=== PATIENT | male | born 1960 | race African-American/Black ===

== ENCOUNTER 2019-01-03 07:08 | Inpatient (IN) | payer MEDICAID ==
[~2019-01-03] VITALS: Ht 172.7 cm; Wt 58.1 kg
[2019-01-03 08:19] LABS: BASOPHILS % 0.9 % (0.0-2.0); EOSINOPHILS % 0.6 % (0.0-5.0); HEMATOCRIT. 38.9 % (42.0-52.0); HEMOGLOBIN. 13.2 g/dL (14.0-18.0); LYMPHOCYTES % 20.6 % (20.0-50.0); MEAN CORPUSCULAR HEMOGLOBIN 30.6 pg (28.0-32.0); MEAN CORPUSCULAR VOLUME 90.3 fL (80.0-94.0); MEAN PLATELET VOLUME 8.7 fl (7.4-10.4); MONOCYTES % 7.5 % (2.0-8.0); NEUTROPHILS % 70.4 % (40.0-76.0); PLATELET 173 x1000/uL (130-400); RED BLOOD CELL COUNT 4.31 mill/uL (4.7-6.1); RED CELL DISTRIBUTION WIDTH 15.3 % (11.6-14.6)
[2019-01-03 08:25] LABS: CHLORIDE 106 mEq/L (98-107)
[2019-01-03 11:55] VITALS: BP 141/61
[2019-01-03] MEDS ORDERED: GUAIFENESIN 200MG/10ML SUGAR FREE UDC PO PRN (12:30)
[2019-01-03] MEDS ORDERED: CLONIDINE 0.1MG TABLET PO PRN (12:30)
[2019-01-03] MEDS ORDERED: MAGNESIUM/ALUMINUM HYDROXIDE/SIMETHICONE 30ML UDC PO PRN (12:30)
[2019-01-03] MEDS ORDERED: DOCUSATE SODIUM 100MG CAPSULE PO PRN (12:30)
[2019-01-03] MEDS ORDERED: HYDROCODONE/ACETAMINOPHEN 5/325MG TABLET PO PRN (12:30)
[2019-01-03] MEDS ORDERED: ACETAMINOPHEN 325MG TABLET PO PRN (12:30)
[2019-01-03] MEDS ORDERED: ONDANSETRON HCL 4MG/2ML INJ IV PRN (12:30)
[2019-01-03] MEDS ORDERED: POTASSIUM CHLORIDE 20MEQ TABLET SR PO SCH (12:30)
[2019-01-03 13:01] VITALS: BP 141/61
[2019-01-03] MEDS: ENOXAPARIN 40MG/0.4ML SYR SUBCUT SCH (13:05)
[2019-01-03 16:08] VITALS: BP 148/65
[2019-01-03] MEDS: SODIUM CHLORIDE 0.45% 1,000 ML IV SCH (16:50)
[2019-01-03 16:51] LABS: CREATINE KINASE MB FRACTION 2.8 ng/mL (0.5-3.6)
[2019-01-03 17:00] LABS: CREATINE KINASE 1217 IU/L (39-308)
[2019-01-03 20:00] VITALS: BP_SYST 154; BP_SYST 159; BP_DIAS 53; BP_DIAS 99
[2019-01-03] MEDS ORDERED: DEXTROSE 50% WATER 50ML SYRINGE IV PRN (20:15)
[2019-01-03] MEDS: BLOOD SUGAR DIAGNOSTIC STRIP TEST SCH (20:31)
[2019-01-03] MEDS: INSULIN LISPRO 100 UNITS/ML SUBCUT SCH (20:31)
[2019-01-04 00:06] VITALS: BP 135/59
[2019-01-04 00:11] LABS: CREATINE KINASE 950 IU/L (39-308)
[2019-01-04 00:12] LABS: CREATINE KINASE MB FRACTION 2.4 ng/mL (0.5-3.6)
[2019-01-04] MEDS: SODIUM CHLORIDE 0.45% 1,000 ML IV SCH (02:33)
[2019-01-04 04:00] VITALS: BP 130/57
[2019-01-04] MEDS: BLOOD SUGAR DIAGNOSTIC STRIP TEST SCH ×2 (06:04→12:20)
[2019-01-04 06:45] LABS: BASOPHILS % 0.6 % (0.0-2.0); EOSINOPHILS % 2.1 % (0.0-5.0); HEMATOCRIT. 40.3 % (42.0-52.0); HEMOGLOBIN. 13.7 g/dL (14.0-18.0); LYMPHOCYTES % 25.8 % (20.0-50.0); MEAN CORPUSCULAR HEMOGLOBIN 30.6 pg (28.0-32.0); MEAN CORPUSCULAR VOLUME 90.1 fL (80.0-94.0); MEAN PLATELET VOLUME 9.2 fl (7.4-10.4); MONOCYTES % 8.5 % (2.0-8.0); PLATELET 158 x1000/uL (130-400); RED BLOOD CELL COUNT 4.47 mill/uL (4.7-6.1)
[2019-01-04] MEDS: INSULIN LISPRO 100 UNITS/ML SUBCUT SCH ×2 (07:43→12:50)
[2019-01-04 07:59] LABS: CHLORIDE 108 mEq/L (98-107)
[2019-01-04 08:00] VITALS: BP 141/68
[2019-01-04] MEDS: ENOXAPARIN 40MG/0.4ML SYR SUBCUT SCH (08:02)
[2019-01-04 08:08] LABS: LDL CHOLESTEROL 158 mg/dL (5-100)
[2019-01-04 08:09] LABS: HDL CHOLESTEROL 57 mg/dL (40-59)
[2019-01-04] MEDS ORDERED: ASPIRIN 81MG EC TABLET PO SCH (09:00)
[2019-01-04 12:00] VITALS: BP 141/68
[2019-01-04] MEDS ORDERED: ATORVASTATIN CALCIUM 20MG TABLET PO SCH (21:00)
== END 2019-01-04 12:30 | disposition home or self-care (01) | DRG 48 ==
LOC: ER 07:08 → 6WST 10:32 → ENRESERV 10:46
PROVIDERS: ADMIT Hospitalist; ATTEND Hospitalist
DX: G90.8 Other disorders of autonomic nervous system (principal); N17.9 Acute kidney failure, unspecified; E11.9 Type 2 diabetes mellitus without complications; E78.5 Hyperlipidemia, unspecified; R00.1 Bradycardia, unspecified; H54.61 Unqualified visual loss, right eye, normal vision left eye; E87.6 Hypokalemia; I10 Essential (primary) hypertension; Z82.49 Family history of ischemic heart disease and other diseases of the circulatory system; Z83.3 Family history of diabetes mellitus
CPT/HCPCS: 36415; 71045; 80061; 82550; 82553; 82962; 83036; 83735; 83880; 84439; 84443; 84484; 93005; 93306; 93970; 99285; J1650

== ENCOUNTER 2021-06-18 10:57 | Inpatient (IN) | payer MEDICAID, OTHER ==
[~2021-06-18] VITALS: Ht 165.1 cm; Wt 58.1 kg
[2021-06-18 15:12] LABS: BASOPHILS % 0.2 % (0.0-2.0); HEMATOCRIT. 39.9 % (42.0-52.0); HEMOGLOBIN. 13.1 g/dL (14.0-18.0); LYMPHOCYTES % 9.6 % (20.0-50.0); MEAN CORPUSCULAR HEMOGLOBIN 28.9 pg (28.0-32.0); MEAN CORPUSCULAR VOLUME 88.3 fL (80.0-94.0); MEAN PLATELET VOLUME 7.7 fl (7.4-10.4); MONOCYTES % 9.2 % (2.0-8.0); PLATELET 185 x1000/uL (130-400); RED BLOOD CELL COUNT 4.51 mill/uL (4.7-6.1)
[2021-06-18 15:18] LABS: CHLORIDE 104 mEq/L (98-107)
[2021-06-18 15:22] LABS: ETHANOL BLOOD < 10 mg/dL
[2021-06-18] MEDS ORDERED: ACETAMINOPHEN 325MG TABLET PO PRN ×2 (19:45)
[2021-06-18] MEDS ORDERED: DOCUSATE SODIUM 100MG CAPSULE PO PRN (19:45)
[2021-06-18] MEDS ORDERED: IPRATROPIUM/ALBUTEROL 0.5-3(2.5)MG/3ML NEB HHN PRN (19:45)
[2021-06-18] MEDS ORDERED: LORAZEPAM 0.5MG TABLET PO PRN (19:45)
[2021-06-18] MEDS ORDERED: HYDROCODONE/ACETAMINOPHEN 5/325MG TABLET PO PRN (19:45)
[2021-06-18] MEDS ORDERED: CLONIDINE 0.1MG TABLET PO PRN (19:45)
[2021-06-18] MEDS ORDERED: ONDANSETRON HCL 4MG/2ML INJ IV PRN (19:45)
[2021-06-18 21:10] LABS: LDL CHOLESTEROL 119 mg/dL (5-100)
[2021-06-18 21:12] LABS: HDL CHOLESTEROL 41 mg/dL (40-59); T4 FREE 1.41 ng/dL (0.76-1.46)
[2021-06-18 23:27] LABS: CLARITY URINE CLEAR (CLEAR); COLOR URINE YELLOW (YELLOW); KETONES URINE NEGATIVE (NEGATIVE); LEUKOCYTE ESTERASE URINE NEGATIVE (NEGATIVE); NITRITE URINE NEGATIVE (NEGATIVE); OCCULT BLOOD URINE NEGATIVE (NEGATIVE); PROTEIN URINE NEGATIVE (NEGATIVE); SPECIFIC GRAVITY URINE 1.014 (1.005-1.030)
[2021-06-18 23:52] LABS: *AMPHETAMINES SCREEN URINE NEGATIVE (NEGATIVE); *BARBITURATES SCREEN URINE NEGATIVE (NEGATIVE); *BENZODIAZEPINES SCREEN URINE NEGATIVE (NEGATIVE); *COCAINE SCREEN URINE NEGATIVE (NEGATIVE); METHADONE URINE SCREEN NEGATIVE (NEGATIVE); OPIATES URINE SCREEN NEGATIVE (NEGATIVE)
[2021-06-18 23:53] LABS: CANNABINOID URINE SCREEN PRESUMTIVE POSITIVE (NEGATIVE); PHENCYCLIDINE URINE SCREEN NEGATIVE (NEGATIVE)
[2021-06-19 08:00] VITALS: BP 131/61
[2021-06-19 09:30] VITALS: BP 111/61
[2021-06-19] MEDS ORDERED: DEXTROSE 50% WATER 50ML SYRINGE IV PRN (09:45)
[2021-06-19] MEDS: BLOOD SUGAR DIAGNOSTIC STRIP TEST SCH ×3 (11:40→20:26)
[2021-06-19 12:00] VITALS: BP 148/46
[2021-06-19] MEDS: INSULIN LISPRO 100 UNITS/ML SUBCUT SCH ×3 (12:07→20:26)
[2021-06-19 16:00] VITALS: BP 126/57
[2021-06-19] MEDS: SODIUM CHLORIDE 0.9% 1,000 ML IV SCH (16:17)
[2021-06-19 20:00] VITALS: BP 124/55
[2021-06-19 21:24] LABS: BASOPHILS % 0.4 % (0.0-2.0); EOSINOPHILS % 0.4 % (0.0-5.0); HEMATOCRIT. 39.1 % (42.0-52.0); HEMOGLOBIN. 12.9 g/dL (14.0-18.0); LYMPHOCYTES % 16.1 % (20.0-50.0); MEAN CORPUSCULAR HEMOGLOBIN 29.1 pg (28.0-32.0); MEAN PLATELET VOLUME 8.4 fl (7.4-10.4); MONOCYTES % 9.8 % (2.0-8.0); NEUTROPHILS % 73.3 % (40.0-76.0); PLATELET 226 x1000/uL (130-400); RED BLOOD CELL COUNT 4.45 mill/uL (4.7-6.1); RED CELL DISTRIBUTION WIDTH 13.7 % (11.6-14.6)
[2021-06-19 21:27] LABS: CHLORIDE 103 mEq/L (98-107)
[2021-06-19 21:36] LABS: CREATINE KINASE 162 IU/L (39-308)
[2021-06-19 21:38] LABS: CREATINE KINASE MB FRACTION < 1.0 ng/mL (0.5-3.6)
[2021-06-20] VITALS: BP 143/78
[2021-06-20 04:00] VITALS: BP 135/80
[2021-06-20] MEDS: BLOOD SUGAR DIAGNOSTIC STRIP TEST SCH ×2 (06:40→11:40)
[2021-06-20] MEDS: INSULIN LISPRO 100 UNITS/ML SUBCUT SCH ×2 (06:41→12:10)
[2021-06-20] MEDS: SODIUM CHLORIDE 0.9% 1,000 ML IV SCH (06:55)
[2021-06-20 08:00] VITALS: BP 173/73
[2021-06-20 12:00] VITALS: BP 140/56
[2021-06-20] MEDS ORDERED: AMLO5TAB88 MT (12:07)
[2021-06-20] MEDS ORDERED: ATOR20TA65 MT (12:08)
[2021-06-20 12:19] VITALS: BP 140/56
== END 2021-06-20 14:40 | disposition home or self-care (01) | DRG 137 ==
LOC: ER 10:57 → 7EST 18:39 → ENRESERV 06-19 07:07
PROVIDERS: ADMIT Internal Medicine; ATTEND Internal Medicine
DX: U07.1 COVID-19 (principal); S09.90XA Unspecified injury of head, initial encounter; G90.8 Other disorders of autonomic nervous system; D64.9 Anemia, unspecified; E11.9 Type 2 diabetes mellitus without complications; E78.5 Hyperlipidemia, unspecified; I10 Essential (primary) hypertension; X58.XXXA Exposure to other specified factors, initial encounter; Z82.49 Family history of ischemic heart disease and other diseases of the circulatory system; Z83.3 Family history of diabetes mellitus; Y93.89 Activity, other specified; Y92.89 Other specified places as the place of occurrence of the external cause; Y99.8 Other external cause status
CPT/HCPCS: 36415; 71045; 80053; 80061; 80305; 80320; 81003; 82550; 82553; 82962; 83036; 83605; 83735; 83880; 84439; 84443; 84481; 84484; 85025; 85379; 87426; 87804; 93005; 93880; 99285; J7030; U0003; U0005; G0480